=== PATIENT | female | born 1970 | race Caucasian/White ===

== ENCOUNTER 2019-09-30 11:52 | Day surgery (SDC) | payer BC ==
[2019-09-30] MEDS ORDERED: Sodium Chloride 0.9(Preservative Free) 10 ML IJ ONE (11:53)
[2019-09-30] MEDS ORDERED: Depo-Medrol 40 MG/ML IM ONE (11:53)
[2019-09-30] MEDS ORDERED: DIPRIVAN 200 MG/20 ML IV ONE (12:39)
[2019-09-30] MEDS ORDERED: Ketamine HCl 50 MG/ML ONE (12:39)
--- NOTE | 2019-09-30 14:25 | XRAY ---
Indication: Left L4-S1 transforaminal CASSY. Intraoperative fluoroscopy was provided for 16 seconds. 3 digital spot images submitted for interpretation demonstrates posterior needle tips projecting over the expected course of the left L4 and L5 nerve roots. Small amount of contrast injected for needle tip placement. Correlate with intraoperative findings/report.
--- NOTE | 2019-09-30 14:32 | XRAY ---
16 seconds fluoroscopy time in surgery for left L4-S1 transforaminal CASSY.
[2019-09-30] MEDS ORDERED: Lactated Ringers 1,000 ML IV ONE (17:04)
== END 2019-09-30 13:00 | disposition home or self-care (01) ==
LOC: SDC-PAIN 11:52
PROVIDERS: ATTEND Psychiatry & Neurology Pain Medicine
DX: M54.16 Radiculopathy, lumbar region (principal); Z79.899 Other long term (current) drug therapy
CPT/HCPCS: 64483; 64484; 72100; 77003; 84703; J1030; J2704; Q9966

== ENCOUNTER 2020-03-23 08:42 | Day surgery (SDC) | payer BC ==
[2020-03-23] MEDS ORDERED: Marcaine 0.5% SDV 10 ML IJ ONE (08:43)
[2020-03-23] MEDS ORDERED: Depo-Medrol 40 MG/ML IM ONE (08:43)
[2020-03-23] MEDS ORDERED: DIPRIVAN 200 MG/20 ML IV ONE (10:21)
[2020-03-23] MEDS ORDERED: Ketamine HCl 50 MG/ML ONE (10:21)
--- NOTE | 2020-03-23 11:10 | XRAY ---
13 seconds fluoroscopy time in surgery for bilateral SI joint injections.
--- NOTE | 2020-03-23 11:10 | XRAY ---
Indication: Bilateral SI joint injection. Intraoperative fluoroscopy was provided for 13 seconds. 4 digital spot images submitted for interpretation demonstrates posterior needle tip projecting over the inferior left and right SI joint. Correlate with intraoperative findings/report.
[2020-03-23] MEDS ORDERED: Lactated Ringers 1,000 ML IV ONE (12:35)
== END 2020-03-23 10:47 | disposition home or self-care (01) ==
LOC: SDC-PAIN 08:42
PROVIDERS: ATTEND Psychiatry & Neurology Pain Medicine
DX: M46.1 Sacroiliitis, not elsewhere classified (principal); Z79.899 Other long term (current) drug therapy
CPT/HCPCS: 27096; 72202; 77002; 84703; J1030; J2704; G0260

== ENCOUNTER 2020-04-20 10:05 | Day surgery (SDC) | payer BC ==
[~2020-04-20 10:05] MED LIST: DIPRIVAN 200 MG/20 ML IV ONE; Ketamine HCl 50 MG/ML ONE
[2020-04-20] MEDS ORDERED: Depo-Medrol 40 MG/ML IM ONE (10:06)
[2020-04-20] MEDS ORDERED: Sodium Chloride 0.9(Preservative Free) 10 ML IJ ONE (10:06)
[2020-04-20] MEDS ORDERED: Xylocaine 1% Vial 30 ML PF IJ ONE (10:06)
--- NOTE | 2020-04-20 12:39 | XRAY ---
25 seconds fluoroscopy time in surgery for caudal CASSY.
--- NOTE | 2020-04-20 12:40 | XRAY ---
Indication: Caudal CASSY. Intraoperative fluoroscopy was provided for 25 seconds. 2 digital spot images submitted for interpretation demonstrates midline posterior needle tip projecting mid sacrum level. Small amount of contrast injected for needle tip placement. Correlate with intraoperative findings/report.
[2020-04-20] MEDS ORDERED: Lactated Ringers 1,000 ML IV ONE (16:35)
== END 2020-04-20 11:51 | disposition home or self-care (01) ==
LOC: SDC-PAIN 10:05
PROVIDERS: ATTEND Psychiatry & Neurology Pain Medicine
DX: M54.16 Radiculopathy, lumbar region (principal); Z79.899 Other long term (current) drug therapy
CPT/HCPCS: 62323; 72220; 77003; 84703; J1030; J2001; J2704; Q9966

== ENCOUNTER 2020-06-10 18:38 | Emergency (ER) | payer BC ==
[2020-06-10] MEDS ORDERED: MSIR 15 MG PO ONE (19:22)
[2020-06-10] MEDS ORDERED: Lidoderm Patch 5% TOP ONE (19:22)
[2020-06-10] MEDS ORDERED: TORAdol 30 mg Injection IM ONE (19:22)
[2020-06-10] MEDS ORDERED: TYLENOL EXTRA STRENGTH 500 MG PO ONE (19:23)
--- NOTE | 2020-06-10 19:24 | ERPHSYRPT ---
- History of Present Illness Time Seen by Provider: 06/10/20 19:05 Source: patient Exam Limitations: no limitations Patient Subjective Stated Complaint: Pt states "I go to pain management for my hips and back. I was just switched yesterday from norco to morphine and it is not working." Triage Nursing Assessment: Pt presented alert and oriented X 3, skin pwd Pt ambulates with an upright steady gait, able to speak in clear full sentences pt in no apparent respiratory distress. Physician History: The patient is a 50 y/o female who presents with "pain all over" but specifically complained of left lateral neck pain that radiates down her left arm. She reports having this pain for a number of years to include low back pain with pain that radiates down her left leg at times and sometimes both legs. She denies recent injury/trauma, fever, chills, anticoagulation use, unexplained weight loss, numbness when wiping her perineum, bladder and bowel incontinence, hx of immunosuppression to include TB and HIV. She is right hand dominant. Pain in her neck is sharp and radiates down the lateral aspect of her left arm. The pain is reportedly constant and severe. She is currently being managed by pain management as an outpatient and is prescribed Cymbalta, morphine, and i believe gabapentin for pain and she reports taking these with no relief. She states she not in the ED for "pain meds" and "just wants an answer to the cause of her pain" because "no one can tell me and no one listens to me." She reports getting injections in her back for pain and reports that she has been referred to the [facility] and has a scheduled appointment in July, because "no one can figure it out." Timing/Duration: other (3 years) Severity: moderate Associated Symptoms: No nausea, No vomiting, No abdominal pain, No shortness of breath, No cough, No chest pain, No headaches, No loss of appetite, No weakness Allergies/Adverse Reactions: Penicillins Allergy (Verified 01/18/15 19:17) sulfamethoxazole [From Bactrim] Allergy (Verified 01/18/15 19:17) trimethoprim [From Bactrim] Allergy (Verified 01/18/15 19:17) Home Medications: Doxepin HCl 10 mg PO HS 02/24/18 [History] Duloxetine HCl [Cymbalta] 20 mg PO 06/10/20 [History] Gabapentin 300 mg PO BID 06/10/20 [History] Morphine Sulfate 15 mg PO DAILY 06/10/20 [History] Hx Tetanus, Diphtheria Vaccination/Date Given: No Hx Influenza Vaccination/Date Given: Yes Hx Pneumococcal Vaccination/Date Given: No Immunizations Up to Date: Yes Travel Risk - International Travel Have you traveled outside of the country in past 3 weeks: No - Coronavirus Screening Are you exhibiting any of the following symptoms?: No Close contact with a COVID-19 positive Pt in past 14-21 Days: No - Review of Systems Constitutional: No Fever, No Chills, No Weakness Eyes: No Symptoms Ears, Nose, & Throat: No No Symptoms Respiratory: No Symptoms Musculoskeletal: Back Pain, Neck Pain, Joint Pain (Hip pain), Myalgias, No Deformity, No Fall, No Injury, No Joint Redness, No Joint Swelling Skin: No Symptoms Neurological: Parasthesia (paresthesia in L arm and hand), No Focal Weakness, No Gait Changes, No Headache, No Sensory Changes, No Tremors Psychological: No Symptoms Endocrine: No Symptoms Hematologic/Lymphatic: No Symptoms Immunological/Allergic: No Symptoms - Past Medical History Pertinent Past Medical History: Yes Neurological History: No Pertinent History Cardiac History: No Pertinent History Respiratory History: No Pertinent History Endocrine Medical History: No Pertinent History Musculoskeletal History: Arthritis Other Medical History: joint dysfunction - Past Surgical History Past Surgical History: Yes Gastrointestinal: Cholecystectomy - Social History Smoking Status: Current every day smoker How long have you smoked: years Exposure to second hand smoke: Yes Drug Use: none Patient Lives Alone: No Significant Family History: heart disease - Female History Hx Last Menstrual Period: 14 years ago Hx Now: No - Nursing Vital Signs Nursing Vital Signs: Initial Vital Signs Temperature 97.9 F 06/10/20 18:49 Pulse Rate 76 06/10/20 18:49 Respiratory Rate 18 06/10/20 18:49 Blood Pressure 187/104 06/10/20 18:49 O2 Sat by Pulse Oximetry 99 06/10/20 18:49 Pain Scale Pain Intensity [Back] 10 Pain Intensity 8 - Physical Exam General Appearance: anxiety, other (Laying right lateral recumbent and crying when I entered the room) Eye Exam: PERRL/EOMI Ears, Nose, Throat Exam: normal ENT inspection Neck Exam: other (Tenderness noted to the left lateral aspect of the neck and trapezius. + Spurling on the left. 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 No muscle atrophy was noted in the upper or lower extremities, Hip flexion 4+ bilaterally, dorsiflexion and plantar flexion 4+ bilaterally), No swelling, No tenderness Neurologic Exam: alert, oriented x 3, cooperative, other (Sensation to gross touch intact and equal in the ulnar, radial, and median nerve distribution of the both hands. Negative straight leg test, No ankle clonus, I was unable to illict a patellar or biceps reflex because the patient was unable to relax and allow me to test these reflexes. babinski wnl ), No motor deficits, No sensory deficit Skin Exam: normal color, warm, dry, No rash, No petechiae, No jaundice, No cyanosis, No diaphoresis, No jaundice SpO2: 99 O2 Delivery: Room Air - Course Nursing assessment & vital signs reviewed: Yes Ordered Tests: Medication Summary Discontinued Medications Generic Name Dose Route Start Last Admin Trade Name Kelton PRN Reason Stop Dose Admin Acetaminophen 1,000 mg 06/10/20 19:23 06/10/20 19:40 Tylenol Extra Strength 500 Mg PO 06/10/20 19:24 1,000 mg ONCE ONE Administration Acetaminophen Confirm 06/10/20 19:27 Tylenol Extra Strength 500 Mg Administered 06/10/20 19:28 Dose 1,000 mg .ROUTE .STK-MED ONE Ketorolac Tromethamine 30 mg 06/10/20 19:22 06/10/20 19:40 Toradol 30 Mg Injection IM 06/10/20 19:23 30 mg STAT ONE Administration Ketorolac Tromethamine Confirm 06/10/20 19:27 Toradol 30 Mg Injection Administered 06/10/20 19:28 Dose 30 mg .ROUTE .STK-MED ONE Lidocaine 1 patch 06/10/20 19:22 06/10/20 19:39 Lidoderm Patch 5% TOP 06/10/20 19:23 1 patch NOW ONE Administration Morphine Sulfate 15 mg 06/10/20 19:22 06/10/20 19:58 Msir 15 Mg PO 06/10/20 19:23 15 mg ONCE ONE Administration Ondansetron HCl 4 mg 06/10/20 19:50 06/10/20 19:52 Zofran Odt 4 Mg PO 06/10/20 19:51 4 mg STAT ONE Administration Ondansetron HCl Confirm 06/10/20 19:52 Zofran Odt 4 Mg Administered 06/10/20 19:53 Dose 4 mg .ROUTE .STK-MED ONE - Progress Progress: improved Progress Note: 06/10/20 19:56 No toxic in appearance. No red flag features for back pain and her neck pain seems consistent with a left cervical radiculopathy. It appears she had a MRI of her lumbar spine in 12/2019 with no signs of a herniated disc or spinal stenosis. I could not see where she had any outpatient imaging of her neck in her record, but do not feel I need to pursue such in the ED given no red flags for neck pain her her symptoms are classic for radiculopathy and imaging can be obtained as an outpatient at the discretion of her PCP and pain management if needed. She reportedly does not follow with PT as an outpatient. 06/10/20 20:47 The patient was reassessed to find that she was comfortable and ready to go home. She'll be encouraged to continue her prescribed meds and I'll add lidocaine patches and ondansetron since reports that PO morphine has been making her nauseated. She was encouraged to f/u with her PCP to inquire about the need for PT. Counseled pt/family regarding: diagnosis, need for follow-up - Departure Departure Disposition: Home Clinical Impression: Cervical radiculopathy, Low back pain, Chronic pain Condition: Stable Critical Care Time: No Referrals: ADRIENNE GIBBS [Primary Care Provider] - Instructions: Low Back Pain in Adults, Chronic Pain (DC), Radiculopathy (DC) Prescriptions: Lidocaine 1 each TP DAILY #7 adh..patch Ondansetron [Ondansetron Odt] 4 mg PO Q4-6HPRN PRN #20 tab.rapdis PRN Reason: Vomiting
[2020-06-10] MEDS ORDERED: TYLENOL EXTRA STRENGTH 500 MG ONE (19:27)
[2020-06-10] MEDS ORDERED: TORAdol 30 mg Injection ONE (19:27)
[2020-06-10] MEDS ORDERED: ZOFRAN ODT 4 MG PO ONE (19:50)
[2020-06-10] MEDS ORDERED: ZOFRAN ODT 4 MG ONE (19:52)
[2020-06-10 21:12] VITALS: BP 118/70; PULSE 64
[2020-06-11 05:44] VITALS: O2SAT 99
== END 2020-06-10 21:11 | disposition home or self-care (01) ==
LOC: ED 18:38
DX: M54.12 Radiculopathy, cervical region (principal); M54.5 Low back pain; G89.29 Other chronic pain; F45.42 Pain disorder with related psychological factors
CPT/HCPCS: 96372; 99284; J1885; Q0162; A9270-GY

== ENCOUNTER 2020-07-21 15:07 | Emergency (ER) | payer BC ==
--- NOTE | 2020-07-21 15:13 | ERPHSYRPT ---
- History of Present Illness Time Seen by Provider: 07/21/20 15:13 Historian: patient, EMS Exam Limitations: no limitations Physician History: This is a 50-year-old white female who was brought in by EMS with complaints of abdominal pain. Patient has had chronic abdominal pain and has been diagnosed with pelvic floor syndrome. She is not on any pain medication per her report at this time. She does see pain management (Dr. Mcintosh). She last saw him on 07/20/2020. On 07/19/2020 patient was supposed to get a mammogram but was feeling too poorly to do so. Patient states that she has had diarrheal stools and it and has vomited twice today and had a syncopal episode because she feels so weak from the loose stools and vomiting. Patient's primary doctor is Dr. Augustine. Patient has a colonoscopy scheduled for 07/25/2020. Patient received 50 mcg of intravenous fentanyl by EMS. Timing/Duration: day(s) (Last few days), worse Activities at Onset: none Quality: cramping Abdominal Pain Onset Location: generalized abdomen Severity of Pain-Max: moderate Severity of Pain-Current: mild (On arrival. Patient just received fentanyl from EMS.) Associated Symptoms: diarrhea, nausea, vomiting, weakness Previous symptoms: same symptoms as today Allergies/Adverse Reactions: morphine Allergy (Verified 07/21/20 15:11) Nausea Penicillins Allergy (Verified 07/21/20 15:11) Sulfa (Sulfonamide Antibiotics) Allergy (Verified 07/21/20 15:12) sulfamethoxazole [From Bactrim] Allergy (Verified 07/21/20 15:11) trimethoprim [From Bactrim] Allergy (Verified 07/21/20 15:11) Home Medications: Clonazepam [Klonopin] 0.25 mg PO BID 07/20/20 [History] Docusate Sodium [Stool Softener] 100 mg PO DAILY 07/20/20 [History] Famotidine [Pepcid] 40 mg PO DAILY 07/20/20 [History] Naproxen Sodium 220 mg [Aleve 220 MG] 220 mg PO DAILY PRN PRN 07/20/20 [History] Omeprazole Magnesium [Prilosec Otc] 20 mg PO DAILY 07/20/20 [History] Paroxetine HCl 20 mg [Paxil 20 MG] 20 mg PO DAILY 07/20/20 [History] Hx Tetanus, Diphtheria Vaccination/Date Given: No Hx Influenza Vaccination/Date Given: Yes Hx Pneumococcal Vaccination/Date Given: No Travel Risk - International Travel Have you traveled outside of the country in past 3 weeks: No - Coronavirus Screening Are you exhibiting any of the following symptoms?: Yes Symptoms: Vomiting/Diarrhea Close contact with a COVID-19 positive Pt in past 14-21 Days: No - Review of Systems Constitutional: No Symptoms Eyes: No Symptoms Ears, Nose, & Throat: No Symptoms Respiratory: No Symptoms Cardiac: No Symptoms Abdominal/Gastrointestinal: Abdominal Pain, Nausea, Vomiting, Diarrhea Genitourinary Symptoms: No Symptoms Musculoskeletal: No Symptoms Skin: No Symptoms Neurological: No Symptoms Psychological: No Symptoms Endocrine: No Symptoms Hematologic/Lymphatic: No Symptoms Immunological/Allergic: No Symptoms All Other Systems: Reviewed and Negative - Past Medical History Pertinent Past Medical History: Yes Neurological History: No Pertinent History ENT History: Other Cardiac History: No Pertinent History Respiratory History: No Pertinent History Endocrine Medical History: No Pertinent History Musculoskeletal History: No Pertinent History, Arthritis GI Medical History: GERD, Ulcer History: No Pertinent History Psycho-Social History: Anxiety, Panic Disorder Female Reproductive Disorders: No Pertinent History Other Medical History: joint dysfunction- pelvic floor syndrome. hearing dysfunction left ear - Past Surgical History Past Surgical History: Yes Neuro Surgical History: No Pertinent History Cardiac: No Pertinent History Respiratory: No Pertinent History Gastrointestinal: Cholecystectomy Genitourinary: No Pertinent History Musculoskeletal: No Pertinent History Female Surgical History: Tubal Ligation Other Surgical History: Sinus Surgery - Social History Smoking Status: Current every day smoker How long have you smoked: years Exposure to second hand smoke: Yes Drug Use: none Patient Lives Alone: No Significant Family History: heart disease - Nursing Vital Signs Nursing Vital Signs: Initial Vital Signs Temperature 98.1 F 07/21/20 15:14 Pulse Rate 76 07/21/20 15:14 Respiratory Rate 18 07/21/20 15:14 Blood Pressure 153/97 07/21/20 15:14 O2 Sat by Pulse Oximetry 97 07/21/20 15:14 Pain Scale Pain Intensity 7 Ordered Tests: Active Orders 24 hr Category Date Time Status IV Insertion STAT Care 07/21/20 15:20 Active ABDOMEN AND PELVIS W/0 CONTRAS [CT] Stat Exams 07/21/20 15:21 Completed AMYLASE Stat Lab 07/21/20 15:22 Completed CBC W DIFF Stat Lab 07/21/20 15:22 Completed CMP Stat Lab 07/21/20 15:22 Completed LIPASE Stat Lab 07/21/20 15:22 Completed Lactic Acid Stat Lab 07/21/20 15:20 Completed UA W/RFX UR CULTURE Stat Lab 07/21/20 15:29 Completed Medication Summary Discontinued Medications Generic Name Dose Route Start Last Admin Trade Name Freq PRN Reason Stop Dose Admin Fentanyl Citrate 50 mcg 07/21/20 16:10 07/21/20 16:22 Sublimaze 100 Mcg/2 Ml IV 07/21/20 16:11 100 mcg STAT ONE Administration Fentanyl Citrate Confirm 07/21/20 16:20 Sublimaze 100 Mcg/2 Ml Administered 07/21/20 16:21 Dose 100 mcg .ROUTE .STK-MED ONE Sodium Chloride 1,000 mls @ 999 mls/hr 07/21/20 15:20 07/21/20 16:44 Sodium Chloride 0.9% 1000 Ml IV 07/21/20 16:20 Infused .Q1H1M STA Infusion Sodium Chloride Confirm 07/21/20 15:34 Sodium Chloride 0.9% 1000 Ml Administered 07/21/20 15:35 Dose 1,000 mls @ ud .ROUTE .STK-MED ONE Ondansetron HCl 4 mg 07/21/20 15:20 07/21/20 15:39 Zofran 4 Mg/2 Ml Vial IV 07/21/20 15:21 4 mg STAT ONE Administration Ondansetron HCl Confirm 07/21/20 15:34 Zofran 4 Mg/2 Ml Vial Administered 07/21/20 15:35 Dose 4 mg .ROUTE .STK-MED ONE Lab/Rad Data: Laboratory Result Diagrams 07/21/20 15:22 07/21/20 15:22 Laboratory Results 07/21/20 07/21/20 07/21/20 Range/Units 15:29 15:22 15:22 WBC 8.9 (4.0-10.5) K/mm3 RBC 4.22 (4.1-5.4) M/mm3 Hgb 12.8 (12.0-16.0) gm/dl Hct 38.9 (35-47) % MCV 92.2 (78-100) fl MCH 30.3 (26-32) pg MCHC 32.9 (32-36) g/dl RDW 14.1 H (11.5-14.0) % Plt Count 213 (150-450) K/mm3 MPV 10.6 (7.5-11.0) fl Gran % 60.3 (36.0-66.0) % Eos # (Auto) 0.11 (0-0.5) Absolute Lymphs (auto) 2.74 (1.0-4.6) Absolute Monos (auto) 0.69 (0.0-1.3) Lymphocytes % 30.6 (24.0-44.0) % Monocytes % 7.7 (0.0-12.0) % Eosinophils % 1.2 (0.00-5.0) % Basophils % 0.2 (0.0-0.4) % Absolute Granulocytes 5.38 (1.4-6.9) Basophils # 0.02 (0-0.4) Sodium 139 (137-145) mmol/L Potassium 3.7 (3.5-5.1) mmol/L Chloride 110 H (98-107) mmol/L Carbon Dioxide 26 (22-30) mmol/L Anion Gap 6.8 (5-15) MEQ/L BUN 7 (7-17) mg/dL Creatinine 0.59 (0.52-1.04) mg/dL Estimated GFR > 60.0 ML/MIN Glucose 102 (74-106) mg/dL Lactic Acid (0.4-2.0) Calcium 8.9 (8.4-10.2) mg/dL Total Bilirubin 0.30 (0.2-1.3) mg/dL AST 39 H (14-36) U/L ALT 57 H (0-35) U/L Alkaline Phosphatase 73 (38-126) U/L Serum Total Protein 6.5 (6.3-8.2) g/dL Albumin 4.0 (3.5-5.0) g/dL Amylase 61 (30-110) U/L Lipase 39 (23-300) U/L Urine Color YELLOW (YELLOW) Urine Appearance SLIGHTLY CLOUDY (CLEAR) Urine pH 6.0 (5-6) Ur Specific [place] 1.016 (1.005-1.025) Urine Protein NEGATIVE (Negative) Urine Ketones TRACE (NEGATIVE) Urine Blood NEGATIVE (0-5) Lyndon/ul Urine Nitrite NEGATIVE (NEGATIVE) Urine Bilirubin NEGATIVE (NEGATIVE) Urine Urobilinogen NEGATIVE (0-1) mg/dL Ur Leukocyte Esterase MODERATE (NEGATIVE) Urine WBC (Auto) 3-5 (0-5) /HPF Urine RBC (Auto) 3-5 (0-2) /HPF U Epithel Cells (Auto) RARE (FEW) /HPF Urine Bacteria (Auto) NONE (NEGATIVE) /HPF Urine Mucus (Auto) SLIGHT (NEGATIVE) /HPF Urine Culture Reflexed NO (NO) Urine Glucose NEGATIVE (NEGATIVE) mg/dL 07/21/20 Range/Units 15:20 WBC (4.0-10.5) K/mm3 RBC (4.1-5.4) M/mm3 Hgb (12.0-16.0) gm/dl Hct (35-47) % MCV (78-100) fl MCH (26-32) pg MCHC (32-36) g/dl RDW (11.5-14.0) % Plt Count (150-450) K/mm3 MPV (7.5-11.0) fl Gran % (36.0-66.0) % Eos # (Auto) (0-0.5) Absolute Lymphs (auto) (1.0-4.6) Absolute Monos (auto) (0.0-1.3) Lymphocytes % (24.0-44.0) % Monocytes % (0.0-12.0) % Eosinophils % (0.00-5.0) % Basophils % (0.0-0.4) % Absolute Granulocytes (1.4-6.9) Basophils # (0-0.4) Sodium (137-145) mmol/L Potassium (3.5-5.1) mmol/L Chloride (98-107) mmol/L Carbon Dioxide (22-30) mmol/L Anion Gap (5-15) MEQ/L BUN (7-17) mg/dL Creatinine (0.52-1.04) mg/dL Estimated GFR ML/MIN Glucose (74-106) mg/dL Lactic Acid 0.8 (0.4-2.0) Calcium (8.4-10.2) mg/dL Total Bilirubin (0.2-1.3) mg/dL AST (14-36) U/L ALT (0-35) U/L Alkaline Phosphatase (38-126) U/L Serum Total Protein (6.3-8.2) g/dL Albumin (3.5-5.0) g/dL Amylase (30-110) U/L Lipase (23-300) U/L Urine Color (YELLOW) Urine Appearance (CLEAR) Urine pH (5-6) Ur Specific [place] (1.005-1.025) Urine Protein (Negative) Urine Ketones (NEGATIVE) Urine Blood (0-5) Lyndon/ul Urine Nitrite (NEGATIVE) Urine Bilirubin (NEGATIVE) Urine Urobilinogen (0-1) mg/dL Ur Leukocyte Esterase (NEGATIVE) Urine WBC (Auto) (0-5) /HPF Urine RBC (Auto) (0-2) /HPF U Epithel Cells (Auto) (FEW) /HPF Urine Bacteria (Auto) (NEGATIVE) /HPF Urine Mucus (Auto) (NEGATIVE) /HPF Urine Culture Reflexed (NO) Urine Glucose (NEGATIVE) mg/dL - Progress Progress: improved, pain not gone completely, re-examined Progress Note: 07/21/20 16:45 CAT scan of the abdomen and pelvis without contrast does not show any acute intra-abdominal or pelvic process. Counseled pt/family regarding: lab results, diagnosis, need for follow-up, rad results - Departure Departure Disposition: Home Clinical Impression: UTI (urinary tract infection) Condition: Stable Critical Care Time: No Referrals: ADRIENNE GIBBS [Primary Care Provider] - Additional Instructions: Drink plenty of fluids. Follow-up with your primary care physician and pain management doctor for further management of your pain. Keep your appointment for your colonoscopy scheduled on 07/25/2020. Prescriptions: Promethazine HCl 25 mg [Phenergan 25 mg] 25 mg PO Q8H PRN PRN #10 tablet PRN Reason: Nausea/Vomiting Ciprofloxacin [Cipro 500 MG] 500 mg PO BID #14 tablet
[2020-07-21] MEDS ORDERED: Zofran 4 MG/2 ML VIAL IV ONE (15:20)
[2020-07-21] MEDS ORDERED: Sodium Chloride 0.9% 1000 ML 1,000 ML IV STA (15:20)
[2020-07-21] MEDS ORDERED: Zofran 4 MG/2 ML VIAL ONE (15:34)
[2020-07-21] MEDS ORDERED: Sodium Chloride 0.9% 1000 ML 1,000 ML ONE (15:34)
[2020-07-21 15:35] LABS: Absolute Neutrophil Ct (ANC) 5.38 (1.4-6.9); BASOPHIL % 0.2 % (0.0-0.4); Basophil (Absolute #) 0.02 (0-0.4); Eosinophil % 1.2 % (0.00-5.0); Eosinophil (Absolute #) 0.11 (0-0.5); Hematocrit 38.9 % (35-47); Hemoglobin 12.8 gm/dl (12.0-16.0); Lymphocyte (Absolute #) 2.74 (1.0-4.6); Lymphocytes % 30.6 % (24.0-44.0); Mean Cell Volume 92.2 fl (78-100); Mean Corpuscular Hemoglobin 30.3 pg (26-32); Mean Corpuscular Hgb Concent. 32.9 g/dl (32-36); Mean Platelet Volume 10.6 fl (7.5-11.0); Monocyte (Absolute #) 0.69 (0.0-1.3); Monocytes % 7.7 % (0.0-12.0); Neutrophil % 60.3 % (36.0-66.0); Platelet Count 213 K/mm3 (150-450); Red Blood Count 4.22 M/mm3 (4.1-5.4); Red Cell Distribution Width 14.1 % (11.5-14.0); White Blood Count 8.9 K/mm3 (4.0-10.5)
[2020-07-21 15:51] LABS: ALKALINE PHOSPHATASE 73 U/L (38-126); AMYLASE 61 U/L (30-110); ANION GAP 6.8 MEQ/L (5-15); BLOOD UREA NITROGEN 7 mg/dL (7-17); CHLORIDE 110 mmol/L (98-107); Calcium 8.9 mg/dL (8.4-10.2); Carbon Dioxide 26 mmol/L (22-30); Creatinine 1 0.59 mg/dL (0.52-1.04); EST GLOMERULAR FILTRATION RATE > 60.0 ML/MIN; Glucose 102 mg/dL (74-106); LIPASE 39 U/L (23-300); Potassium 3.7 mmol/L (3.5-5.1); SGOT/AST 39 U/L (14-36); SGPT/ALT 57 U/L (0-35); SODIUM 139 mmol/L (137-145); Total Protein 6.5 g/dL (6.3-8.2)
[2020-07-21 15:52] LABS: Appearance SLIGHTLY CLOUDY (CLEAR); Bilirubin NEGATIVE (NEGATIVE); Blood NEGATIVE Ery/ul (0-5); Epithelial Cells RARE /HPF (FEW); Glucose NEGATIVE (NEGATIVE); Ketones TRACE (NEGATIVE); Leukocyte Esterase MODERATE (NEGATIVE); Mucus SLIGHT /HPF (NEGATIVE); Nitrite NEGATIVE (NEGATIVE); Protein,Urine Dip NEGATIVE (Negative); Specific Gravity 1.016 (1.005-1.025); Urobilinogen NEGATIVE mg/dL (0-1)
[2020-07-21] MEDS ORDERED: SUBLIMAZE 100 MCG/2 ML IV ONE (16:10)
[2020-07-21] MEDS ORDERED: SUBLIMAZE 100 MCG/2 ML ONE (16:20)
--- NOTE | 2020-07-21 16:38 | XRAY ---
Indication: Abdomen pain and weight loss. Multiple contiguous axial images obtained through the abdomen and pelvis without contrast as ordered. Comparison: June 09, 2010. Lung bases remain clear. Heart is not enlarged. Noncontrasted stomach and bowel loops appear nonobstructed. Normal air-filled appendix. Again previous cholecystectomy. No free fluid/air. Remaining liver, pancreas, spleen, adrenal glands, kidneys, ureters, bladder, and uterus appear unremarkable for noncontrast exam. There is now minimal aortoiliac calcifications without AAA. Osseous structures intact. No ventral or inguinal hernias. Impression: New minimal aortoiliac calcifications. Remaining CT abdomen/pelvis without contrast exam is negative.
[2020-07-21] MEDS ORDERED: Levofloxacin 500 MG Tablet PO ONE (16:50)
[2020-07-21] MEDS ORDERED: Levofloxacin 500 MG Tablet ONE (16:53)
[2020-07-21 17:07] VITALS: BP 148/76
[2020-07-21 17:30] VITALS: PULSE 84; O2SAT 99
== END 2020-07-21 17:40 | disposition home or self-care (01) ==
LOC: ED 15:07
DX: N39.0 Urinary tract infection, site not specified (principal)
CPT/HCPCS: 36000; 36415; 74176; 80053; 81001; 82150; 83605; 83690; 85025; 96360; 96374; 96375; 99284; J2405; J3010; A9270-GY

== ENCOUNTER 2020-07-25 05:58 | Day surgery (SDC) | payer BC ==
[~2020-07-25 05:58] MED LIST changes: -Ketamine HCl 50 MG/ML ONE
[2020-07-25] MEDS ORDERED: Lactated Ringers 1,000 ML IV SCH (06:30)
[2020-07-25] MEDS ORDERED: Mylicon DROPS ONE (08:04)
[2020-07-25 08:17] VITALS: BP 155/88; PULSE 63; O2SAT 97
--- NOTE | 2020-07-25 14:34 | OP ---
SURGERY DATE/TIME: 07/25/2020 0700 PREOPERATIVE DIAGNOSES: 1) Abdominal pain. 2) Nausea. 3) Weight loss. POSTOPERATIVE DIAGNOSES: 1) NSAID gastropathy. 2) Hiatal hernia. 3) Normal colon. PROCEDURES: 1) Esophagogastroduodenoscopy with cold forceps biopsy. 2) Colonoscopy. SURGEON: Dr. Augustine. ANESTHESIA: Medications were given by the anesthesia department. HISTORY: The patient is a 50 year old white female who recently had been up to the [facility] and had the diagnosis of pelvic floor dysfunction. The patient has been taking NSAID's particularly Aleve with complaints of chronic nausea over the past month. The patient has been taking omeprazole without relief. The patient is felt the need to have endoscopic evaluation as she did not have this at [facility] as she ran out of time. The patient was described the risks of the procedure including the risk of perforation, phlebitis, untoward reaction to medication, bleeding and missed lesions. The patient verbalized her understanding and desired to have the procedure performed. DESCRIPTION OF PROCEDURE: The patient was given the medications by the anesthesia department. She had continuous pulse oximetry, ECG monitoring, intermittent blood pressure monitoring and tidal CO2 monitoring during the examination. She was placed in the left lateral decubitus position. A bite block was placed and the flexible Olympus gastroscope was used to intubate the oropharynx. A view of the larynx was obtained and was normal. The scope was easily introduced in the esophagus which appeared to be normal throughout its length. The stomach was entered where normal gastric rugal folds were seen. There was stigmata of NSAID-type gastropathy noted throughout the body and the antrum. The scope was passed along the greater curvature to the antrum. The pylorus encountered and intubated. The duodenum inspected and found to be normal. The scope is withdrawn from the stomach. A retroflex view was obtained of the lesser curvature, fundus and cardia regions of the stomach and there was noted to be a small hiatal hernia. Biopsies were obtained with cold forceps biopsies of the gastric antrum to rule out the presence of Helicobacter pylori-type organisms and confirm the presence of gastritis. Next, a digital rectal exam was performed revealed external hemorrhoids without bleeding. No masses. The flexible Olympus pediatric colonoscope was used to intubate the rectum. It was noted that the sigmoid colon was long and tortuous. We were able to reach to cecum with moderate difficulty. Upon insertion and withdrawal, including a retroflex view in the rectum, no mucosal lesions were encountered. The scope was removed from the patient who tolerated the procedure well and sent back to OP recovery in good condition. The prep was noted to be fair with liquid stool noted through approximately 10% of the colon particularly in the transverse colon.
== END 2020-07-25 08:23 | disposition home or self-care (01) ==
LOC: SDC 05:58
PROVIDERS: ATTEND Family Medicine
DX: K44.9 Diaphragmatic hernia without obstruction or gangrene (principal); K31.9 Disease of stomach and duodenum, unspecified; R10.9 Unspecified abdominal pain; R63.4 Abnormal weight loss; R11.0 Nausea; Z79.1 Long term (current) use of non-steroidal anti-inflammatories (NSAID)
CPT/HCPCS: 88305; J2704; A9270-GY